=== PATIENT | male | born 1925 | race Caucasian/White ===

== ENCOUNTER 2016-05-21 09:39 | Inpatient (IN) | payer OTHER, MEDICARE ==
[~2016-05-21] VITALS: Ht 177.8 cm; Wt 90.7 kg
[~2016-05-21 09:39] MED LIST: ASPIRIN EC81 M1 PO; DOXYCYCLINE HY100 M2 PO; FIBRO-TABS1 TAB PO; FISH OIL1000 MG PO; FLOMAX0.4 M1 PO; KEFLEX500 M1 PO; LASIX20 M1 PO; LEVOTHYROXINE88 MCG PO; LOPRESSOR100 M1 PO; METOPROLOL TAR100 M1 PO; MULTIPLE VITAM1 EAC2 PO; PRADAXA150 M1 PO; PROAIR HFA8.5 GM INH; TRANSDERM-SCOP1 EACH TOP; VITAMIN D31000 UNI2 PO
--- NOTE | 2016-05-21 09:46 | NUR ---
PT STATES THAT HE IS ON PRADAXA FOR AFIB X 5 YEARS DUE TO AFIB, ALSO WAS STARTED ON DIGOXIN FOR HIS AFIB YESTERDAY. STATES THAT HE HAD A NORMAL BM LAST PM BUT THIS AM STOOL WAS BLACK AND ALSO HAD A MODERATE AMOUNT OF BRIGHT RED BLOOD IN THE TOILET. DENIES ABD PAIN/CP/N/V/D . SOB WITH EXERTION, O2 SAT 94 % ON RA. ALSO COMPLAINS OF FEELING A LITTLE OFF BALANCE
--- NOTE | 2016-05-21 10:09 | NUR ---
PT CHANGED INTO GOWN AND PLACED ON GEAR CUTTER. LABS DRAWN AND SENT. EKG COMPLETED. UNABLE TO ACCESS PERIPHREAL IV SITE X 3 RN. IV NURSE PAGED FOR ASSIST
--- NOTE | 2016-05-21 10:37 | ED GI/GU/ABDOMINAL COMPLAINT ---
History of Present Illness General Chief Complaint: General Adult Stated Complaint: BLOODY STOOL Source: patient, old records Exam Limitations: no limitations Allergies Coded Allergies: strawberry (Mild, HOT STREAK UP HIS BACK PER PT 02/10/16) Penicillins (CONVULSIONS, ANAPHYLAXIS 02/10/16) shrimp (GI UPSET FAR HE REMEMBERS PER PT 02/10/16) Reconcile Medications Albuterol Sulfate (Proair Hfa) 0.09 MG/Actuation SONJA 2 PUFF INH PRN EMPHYSEMA (Reported) Aspirin (Ecotrin) 81 MG TABLET.DR 1 TAB PO DAILY HEART HEALTH (Reported) Cholecalciferol (Vitamin D3) 1,000 IU TAB 1 TAB PO DAILY SUPPLEMENT (Reported ) DABIGATRAN ETEXILATE MESYLATE (Pradaxa) 150 MG CAPSULE 1 CAP PO BID BLOOD THINNER (Reported) Digoxin 125 MCG TABLET 0.5 TAB PO DAILY HEART (Reported) Furosemide (Lasix) 20 MG TABLET 1 TAB PO DAILY DIURETIC (Reported) Levothyroxine Sodium (Levothyroxine) 0.088 MG TAB 1 TAB PO DAILY AC THYROID ( Reported) Metoprolol Tartrate (Lopressor) 100 MG TABLET 1.5 TAB PO BID heart (Reported) Metoprolol Tartrate 100 MG TABLET 1.5 TAB PO TWICE DAILY high blood pressure Multivitamin (Multiple Vitamins) 1 EACH TABLET 1 TAB PO DAILY SUPPLEMENT ( Reported) OMEGA-3/DHA/EPA/FISH OIL ([place]-3 Fish Oil 1,000 MG Sftg) (Unknown Strength) CAPSULE (Unknown Dose) PO DAILY SUPPLEMENT (Reported) Tamsulosin HCl (Flomax) 0.4 MG CAP.ER.24H 1 CAP PO QPM BLADDER (Reported) Triage Note: PT STATES THAT HE IS ON PRADAXA FOR AFIB X 5 YEARS DUE TO AFIB, ALSO WAS STARTED ON DIGOXIN FOR HIS AFIB YESTERDAY. STATES THAT HE HAD A NORMAL BM LAST PM BUT THIS AM STOOL WAS BLACK AND ALSO HAD A MODERATE AMOUNT OF BRIGHT RED BLOOD IN THE TOILET. DENIES ABD PAIN/CP/N/V/D . SOB WITH EXERTION, O2 SAT 94 % ON RA Triage Nurses Notes Reviewed? yes HPI: Patient is an 89 year old male presents complaining of black stool and bright red blood per rectum with bowel movement approximately 2 hours ago. Patient had one episode, reports his stools were normal yesterday. Patient takes Pradaxa. Started on digoxin 3 days ago. Pain is 0/10. Denies abdominal pain, nausea, vomiting, diarrhea, chest pain, dyspnea, lightheadedness, near syncope sensation. (ROBERTO LAW) Vital Signs & Intake/Output Vital Signs & Intake/Output Vital Signs Date Time Temp Pulse Resp B/P Pulse O2 O2 Flow FiO2 Ox Delivery Rate 05/22 0907 98.2 57 20 132/62 94 05/22 0028 60 126/70 05/22 0027 60 126/70 05/21 2353 98.2 58 20 126/70 96 Room Air 05/21 1631 98.5 52 20 130/64 94 Room Air 05/21 1630 94 Room Air 05/21 1323 98.8 51 18 129/59 96 05/21 1200 96 05/21 0943 97.9 56 18 106/50 94 Room Air ED Intake and Output 05/22 0000 05/21 1200 Intake Total 3000 Output Total Balance 3000 Intake, Oral 3000 Number 4 Bowel Movements Patient 200 lb 200 lb Weight Past History Travel History Traveled to [place] past 21 day No Medical History Any Pertinent Medical History? see below for history Neurological: NONE EENT: hearing loss Cardiovascular: AFIB, CARDIAC ARREST Respiratory: COPD Gastrointestinal: diverticulosis Hepatic: NONE Renal: URINARY FREQUENCY Musculoskeletal: NONE Psychiatric: NONE Endocrine: hypothyroidism Blood Disorders: NONE Cancer(s): basal cell carcinoma SHIRT FINISHER/Reproductive: NONE History of MRSA: No History of VRE: No History of CDIFF: No Pneumonia Vaccine: 05/10/10 Surgical History Surgical History: non-contributory Psychosocial History Who do you live with Spouse Services at Home None What is your primary language Macedonian Tobacco Use: Never used ETOH Use: denies use Illicit Drug Use: denies illicit drug use Family History Family History, If Any: MOTHER FH: [place] (myocardial infarction) Hx Contributory? No (ROBERTO LAW) Review of Systems Review of Systems Constitutional: Denies: chills, fever, weakness. EENTM: Reports: no symptoms. Respiratory: Denies: cough, short of breath. Cardiovascular: Denies: chest pain, syncope. GI: Reports: bloody stool. Denies: abdominal pain, nausea, vomiting. Genitourinary: Reports: no symptoms. Musculoskeletal: Denies: back pain, neck pain. Skin: Reports: no symptoms. Neurological/Psychological: Reports: no symptoms. Hematologic/Endocrine: Reports: bleeding. Immunologic/Allergic: Reports: no symptoms. (ROBERTO LAW) Physical Exam Physical Exam General Appearance: well developed/nourished, alert, awake Head: atraumatic, normal appearance Eyes: Bilateral: normal appearance, PERRL, EOMI. Ears, Nose, Throat, Mouth: hearing grossly normal, moist mucous membrane Neck: normal inspection, supple, full range of motion Respiratory: normal breath sounds, chest non-tender, no respiratory distress, lungs clear Cardiovascular: regular rate/rhythm Gastrointestinal: normal bowel sounds, soft, non-tender Rectal: maroon stool with small blood clot Back: normal inspection, normal range of motion Extremities: normal range of motion, trace bilateral lower extremity edema Neurologic/Psych: awake, alert, oriented x 3 Skin: normal color, warm/dry Core Measures ACS in differential dx? No Severe Sepsis Present: No Septic Shock Present: No (ROBERTO LAW) Progress Differential Diagnosis: GI bleed, symptomatic anemia Initial ED EKG: NSR, no ST T wave changes (ROBERTO LAW) Plan of Care: Orders Procedure Date/time Status Nothing by Mouth 05/22 B Active TRC EVALUATION (GEN) 05/22 0910 Active CBC WITHOUT DIFFERENTIAL 05/22 0400 Complete Nothing by Mouth 05/21 L Complete Clear Liquid Diet 05/21 D Complete CBC WITHOUT DIFFERENTIAL 05/21 1900 Complete Vital Signs 05/21 1838 Active Teach/Educate 05/21 1838 Active Nutritional Intake, Monitor 05/21 1838 Active Isolation 05/21 1838 Complete Intake & Output 05/21 1838 Active Patient Care Conference 05/21 1838 Active Activity/Ambulation 05/21 1838 Active Intake & Output 05/21 1244 Active Pathway - chart 05/21 1228 Active Misc Message 05/21 1228 Active ED Holding Orders 05/21 1228 Active Vital Signs 05/21 1228 Active Code Status 05/21 1228 Active Patient Data 05/21 1219 Active Admit to inpatient 05/21 1200 Active URINALYSIS 05/21 1154 Complete Add-on Test (ER Only) 05/21 1048 Active DIGOXIN 05/21 1032 Complete MISTAKE 05/21 1017 Active PARTIAL THROMBOPLASTIN TIME 05/21 1017 Complete PROTHROMBIN TIME 05/21 1017 Complete COMPREHENSIVE METABOLIC PANEL 05/21 1017 Complete CBC WITHOUT DIFFERENTIAL 05/21 1017 Complete EKG 05/21 1017 Active TYPE & SCREEN (NOT X-MATCH) 05/21 1017 Complete VTE Mechanical Prophylaxis 05/21 UNK Active Vital Signs 05/21 UNK Complete Current Medications Sig/Hugo Start time Last Medication Dose Stop Time Status Admin Digoxin 0.0625 MG DAILY 05/22 1000 AC (Lanoxin) Furosemide 20 MG DAILY 05/22 1000 AC (Lasix) Dextrose/Sodium 1,000 ML Q20H 05/22 0915 AC Chloride (D5W-1/2 Normal Saline 1000ML) Ondansetron HCl 4 MG ONCE ONE 05/22 0145 CAN (Zofran) 05/22 0146 Albuterol Sulfate 2 PUF Q4P PRN 05/22 0001 AC (Ventolin) Aspirin Buffered 81 MG DAILY 05/21 1537 AC (Ecotrin) Laboratory Tests 05/22/16 0455: CBC w Diff NO MAN DIFF REQ, RBC 4.04 L, MCV 87.4, MCH 28.8, RDW 16.9 H, MPV 9.7, Gran % 72.1, Lymphocytes % 18.2 L, Monocytes % 5.9, Eosinophils % 2.9, Basophils % 0.9, Absolute Granulocytes 8.1 H, Absolute Lymphocytes 2.1, Absolute Monocytes 0.7 H, Absolute Eosinophils 0.3, Absolute Basophils 0.1, PUBS MCHC 33.0 05/21/16 1920: CBC w Diff NO MAN DIFF REQ, RBC 3.91 L, MCV 87.0, MCH 28.4, RDW 16.6 H, MPV 10.0, Gran % 68.4, Lymphocytes % 20.1 L, Monocytes % 7.8, Eosinophils % 3.4, Basophils % 0.3, Absolute Granulocytes 7.7 H, Absolute Lymphocytes 2.3, Absolute Monocytes 0.9 H, Absolute Eosinophils 0.4, Absolute Basophils 0, PUBS MCHC 32.7 L 05/21/16 1800: CBC w Diff Cancelled, WBC Cancelled, RBC Cancelled, Hgb Cancelled, Hct Cancelled , MCV Cancelled, MCH Cancelled, RDW Cancelled, Plt Count Cancelled, MPV Cancelled, PUBS MCHC Cancelled 05/21/16 1600: CBC w Diff Cancelled, WBC Cancelled, RBC Cancelled, Hgb Cancelled, Hct Cancelled , MCV Cancelled, MCH Cancelled, RDW Cancelled, Plt Count Cancelled, MPV Cancelled, PUBS MCHC Cancelled 05/21/16 1155: Urine Color STRAW, Urine Clarity CLEAR, Urine pH 6.0, Ur Specific [place] 1.015, Urine Protein NEG, Urine Ketones NEG, Urine Nitrite NEG, Urine Bilirubin NEG, Urine Urobilinogen 0.2, Ur Leukocyte Esterase NEG, Ur Microscopic SEDIMENT EXAMINED, Urine RBC RARE, Urine Hemoglobin TRACE-INTACT H, Urine Glucose NEG 05/21/16 1032: Anion Gap 13, Estimated GFR > 60, BUN/Creatinine Ratio 38.0 H, Glucose 91, Calcium 8.9, Total Bilirubin 0.6, AST 44, ALT 35, Alkaline Phosphatase 75, Total Protein 6.4, Albumin 3.7, Globulin 2.7, Albumin/Globulin Ratio 1.4, PT 17.3 H, INR 1.66 H, APTT 87 H, CBC w Diff NO MAN DIFF REQ, RBC 3.89 L, MCV 87.7, MCH 28.5, RDW 17.0 H, MPV 9.6, Gran % 74.1, Lymphocytes % 16.4 L, Monocytes % 6.5, Eosinophils % 2.8, Basophils % 0.2, Absolute Granulocytes 8.6 H, Absolute Lymphocytes 1.9, Absolute Monocytes 0.8 H, Absolute Eosinophils 0.3, Absolute Basophils 0, PUBS MCHC 32.5 L, Digoxin 0.7 L 1130: Results discussed with patient and his . Discussed with and seen by Dr. Dejesus. Discussed with Dr. Tolentino. Discussed with Dr. Roberts for admission. (ROBERTO LAW) Departure Departure Time of Disposition: 115 Disposition: STILL A PATIENT Condition: Stable Clinical Impression Primary Impression: GI bleed Qualifiers: GI bleed type/associated pathology: unspecified gastrointestinal hemorrhage type Qualified Code: K92.2 - Gastrointestinal hemorrhage, unspecified Referrals: NIYAH HENLEY,TROY Patel (PCP/Family) Departure Forms: Customer Survey General Discharge Information Admission Note Spoke With: JAN ROBERTS MD Documentation of Exam: Documentation of any treatments & extenuating circumstances including Concerns Regarding Discharge (functional status, medication knowledge or non-compliance, living conditions, etc.) that warrant an admission rather than observation: Serial complete blood cell counts, GI consultation, hold patient's anticoagulation. With patient being on Pradaxa and having some octavia blood on exam, at high risk. (ISRRAEL RODRIGUEZ,ROBERTO) PA/CABINET WORKER Co-Sign Statement Statement: ED Attending supervision documentation- [x] I saw and evaluated the patient. I have also reviewed all the pertinent lab results and diagnostic results. I agree with the findings and the plan of care as documented in the PA's/CABINET WORKER's documentation. [] I have reviewed the ED Record and agree with the PA's/CABINET WORKER's documentation. [] Additions or exceptions (if any) to the PAs/CABINET WORKER's note and plan are summarized below: [] (NOLAN HENLEY,ALLAN Holly)
[2016-05-21 10:50] LABS: ABSOLUTE BASOPHIL COUNT 0 /CUMM (0.0-0.2); ABSOLUTE EOSINOPHIL COUNT 0.3 /CUMM (0.0-0.7); ABSOLUTE GRANULOCYTE CT 8.6 /CUMM (1.4-6.5); ABSOLUTE LYMPH COUNT 1.9 /CUMM (1.2-3.4); ABSOLUTE MONOCYTE COUNT 0.8 /CUMM (0.10-0.60); BASOPHIL % 0.2 % (0.0-2.0); EOSINOPHIL % 2.8 % (0-5); GRANULOCYTE % 74.1 % (42.2-75.2); HEMATOCRIT 34.1 % (42-52); MEAN CORPUSCULAR HGB 28.5 PG (27.0-31.0); MEAN CORPUSCULAR HGB CONC 32.5 G/DL (33.0-37.0); MEAN CORPUSCULAR VOLUME 87.7 FL (80.0-94.0); MEAN PLATELET VOLUME 9.6 FL (7.4-10.4); PLATELET COUNT 268 /CUMM (130-400); RED BLOOD CELL CT 3.89 /CUMM (4.70-6.10); WHITE BLOOD CELL COUNT 11.7 /CUMM (4.8-10.8)
[2016-05-21 10:53] LABS: PT 17.3 SEC (9.4-12.5); PTT 87 SEC (25-37)
[2016-05-21] MEDS ORDERED: DIGOXIN125 MCG PO (11:30)
--- NOTE | 2016-05-21 11:43 | NUR ---
PT ASSISTED WITH URINAL
--- NOTE | 2016-05-21 12:14 | NUR ---
PT REQUESTING TO EAT PA STATES HE MAY HAVE A CLEAR LIQUID DIET ORDERED FROM THE [facility]
--- NOTE | 2016-05-21 12:26 | History & Physical ---
See Addendum General Information and HPI MD Statement: I have seen and personally examined BEKA GRIFFITHS JR and documented this H&P. The patient is a 89 year old M who presented with a patient stated chief complaint of [DARK STOOLS, BLEEDING PER RECTUM]. Source of Information: patient Exam Limitations: no limitations History of Present Illness: Patient is 89 year old male with PMH of atrial fibrillation on pradexa, hemorrids, emphysema, HTN, s/p cardiac arrest with ACID in 2009, hypothyroidism, hyperlipidemia and BPH came to [facility] after an episode of dark stools per rectum and fresh blood seen after that. Patient states that he was in his usual state of health yesterday, had a regular BM around 6 pm, and had one episode of dark stools followed by bright red blood per rectum this morning at 8 am. Patient had [place] [address] Hernandez, which was significant for a hyperplastic polyp. He was supposed to have a follow up colonoscopy 5 years later but he forgot about that. Patient denies any bloating, constipation, nausea, vomting, any hx of GI bleed etc. He reports that he has external hemorriods, does not remember the stage ( possibly statge 3 or 4) but he has to push them back in sometimes after a bowel movement. ROS is negative except for dependent edema in b/l lower extremety. Patient has paroxsymal atrial fibrillation and was started on digoxin for that 3 days ago by his lumber scaler. He thinks that his rectal bleeding is probably due to the new medication. His father and sister had questionable abdominal cancers, he does not remember which one exactly. Allergies/Medications Allergies: Coded Allergies: strawberry (Mild, HOT STREAK UP HIS BACK PER PT 02/10/16) Penicillins (CONVULSIONS, ANAPHYLAXIS 02/10/16) shrimp (GI UPSET FAR HE REMEMBERS PER PT 02/10/16) Home Med list Albuterol Sulfate (Proair Hfa) 0.09 MG/Actuation SONJA 2 PUFF INH PRN EMPHYSEMA (Reported) Aspirin (Ecotrin) 81 MG TABLET.DR 1 TAB PO DAILY HEART HEALTH (Reported) Cholecalciferol (Vitamin D3) 1,000 IU TAB 1 TAB PO DAILY SUPPLEMENT (Reported ) DABIGATRAN ETEXILATE MESYLATE (Pradaxa) 150 MG CAPSULE 1 CAP PO BID BLOOD THINNER (Reported) Digoxin 125 MCG TABLET 0.5 TAB PO DAILY HEART (Reported) Furosemide (Lasix) 20 MG TABLET 1 TAB PO DAILY DIURETIC (Reported) Levothyroxine Sodium (Levothyroxine) 0.088 MG TAB 1 TAB PO DAILY AC THYROID ( Reported) Metoprolol Tartrate (Lopressor) 100 MG TABLET 1.5 TAB PO BID heart (Reported) Metoprolol Tartrate 100 MG TABLET 1.5 TAB PO TWICE DAILY high blood pressure Multivitamin (Multiple Vitamins) 1 EACH TABLET 1 TAB PO DAILY SUPPLEMENT ( Reported) OMEGA-3/DHA/EPA/FISH OIL ([place]-3 Fish Oil 1,000 MG Sftg) (Unknown Strength) CAPSULE (Unknown Dose) PO DAILY SUPPLEMENT (Reported) Tamsulosin HCl (Flomax) 0.4 MG CAP.ER.24H 1 CAP PO QPM BLADDER (Reported) Past History Travel History Traveled to [place] past 21 day No Medical History Neurological: NONE EENT: hearing loss Cardiovascular: AFIB, CARDIAC ARREST Respiratory: COPD Gastrointestinal: diverticulosis Hepatic: NONE Renal: URINARY FREQUENCY Musculoskeletal: NONE Psychiatric: NONE Endocrine: hypothyroidism Blood Disorders: NONE Cancer(s): basal cell carcinoma DIRECTOR OF PUBLIC WORKS/Reproductive: NONE History of MRSA: No History of VRE: No History of CDIFF: No Pneumonia Vaccine: 05/10/10 Surgical History Surgical History: non-contributory Past Family/Social History Family History Relations & Conditions if any MOTHER FH: [place] (myocardial infarction) FATHER FH: colon cancer SISTER FH: colon cancer Psychosocial History Services at Home: None ETOH Use: denies use Illicit Drug Use: denies illicit drug use Review of Systems Review of Systems Constitutional: Reports: see HPI. Exam & Diagnostic Data Last 24 Hrs of Vital Signs/I&O Vital Signs Date Time Temp Pulse Resp B/P Pulse O2 O2 Flow FiO2 Ox Delivery Rate 05/21 1323 98.8 51 18 129/59 96 05/21 1200 96 05/21 0943 97.9 56 18 106/50 94 Room Air Intake & Output 05/21 1600 05/21 0800 05/21 0000 Intake Total 0 Output Total Balance 0 Intake, Oral 0 Patient 90.718 kg Weight Physical Exam General Appearance Alert, Oriented X3, Cooperative Skin No Rashes, No Breakdown Cardiovascular Regular Rate, Normal S1, Normal S2 Lungs Clear to Auscultation, Normal Air Movement Abdomen Normal Bowel Sounds, Soft, slight tenderness in left lower quadrant Extremities b/l pitting edema Last 24 Hrs of Labs/Sincere: Laboratory Tests 05/21/16 1155: Urine Color STRAW, Urine Clarity CLEAR, Urine pH 6.0, Ur Specific [place] 1.015, Urine Protein NEG, Urine Ketones NEG, Urine Nitrite NEG, Urine Bilirubin NEG, Urine Urobilinogen 0.2, Ur Leukocyte Esterase NEG, Ur Microscopic SEDIMENT EXAMINED, Urine RBC RARE, Urine Hemoglobin TRACE-INTACT H, Urine Glucose NEG 05/21/16 1032: Anion Gap 13, Estimated GFR > 60, BUN/Creatinine Ratio 38.0 H, Glucose 91, Calcium 8.9, Total Bilirubin 0.6, AST 44, ALT 35, Alkaline Phosphatase 75, Total Protein 6.4, Albumin 3.7, Globulin 2.7, Albumin/Globulin Ratio 1.4, PT 17.3 H, INR 1.66 H, APTT 87 H, CBC w Diff NO MAN DIFF REQ, RBC 3.89 L, MCV 87.7, MCH 28.5, RDW 17.0 H, MPV 9.6, Gran % 74.1, Lymphocytes % 16.4 L, Monocytes % 6.5, Eosinophils % 2.8, Basophils % 0.2, Absolute Granulocytes 8.6 H, Absolute Lymphocytes 1.9, Absolute Monocytes 0.8 H, Absolute Eosinophils 0.3, Absolute Basophils 0, PUBS MCHC 32.5 L, Digoxin 0.7 L Assessment/Plan Assessment: Patient is 89 year old male with PMH of atrial fibrillation on pradexa, hemorrids, emphysema, HTN, s/p cardiac arrest with ACID in 2009, hypothyroidism, hyperlipidemia and BPH came to [facility] after an episode of dark stools per rectum and fresh blood seen after that. Patient states that he was in his usual state of health yesterday, had a regular BM around 6 pm, and had one episode of dark stools followed by bright red blood per rectum this morning at 8 am. Patient had colon[place] [address] Hernandez, which was significant for a hyperplastic polyp. He was supposed to have a follow up colonoscopy 5 years later but he forgot about that. Patient denies any bloating, constipation, nausea, vomting, any hx of GI bleed etc. Labs and Vitals as above No imaging done in ER Assessment and plan: Patient looked very dry and hasnot eaten since morning, now on clear liq diet. Will start one bag of NS @ 75 cc/hr Will hold pradexa and aspirin for now WIll continue digoxin and the rest of his home medications. Anusol supp for hemorrids GI consult service on board, will follow their ecommendations DVT ppx ALPS only Full code He want his to be contacted in emergency As Ranked By This Provider Problem List: 1. GI bleed Qualifiers GI bleed type/associated pathology: unspecified gastrointestinal hemorrhage type Qualified Code: K92.2 - Gastrointestinal hemorrhage, unspecified 2. Hypothyroidism Core Measures/Miscellaneous Acute Coronary Syndrome ACS Diagnosis: No Cerebrovascular Accident CVA/TIA Diagnosis: No Congestive Heart Failure CHF Diagnosis: No Venous Thromboembolism VTE Risk Factors: Age > 40 VTE Prophylaxis Ordered Inpt: Mechanical (ALPS/TEDS) No Mech VTE prophylaxis d/t: No contraindications No VTE Pharm Prophylaxis d/t: Active bleeding VTE Diagnosis: No VTE Type: NONE VTE Confirmed by (Test): NONE Severe Sepsis Severe Sepsis Present: No Septic Shock Septic Shock Present: No Miscellaneous Documentation Attending Case Discussed With: FACUNDO HENLEY,FARHEEN Callejas Primary Care Physician: TROY LINDER MD Patient sees these Specialists dr. babin Level of Patient Care: General Medicine
--- NOTE | 2016-05-21 12:42 | NUR ---
PT ADMIT TO BED /
--- NOTE | 2016-05-21 12:45 | NUR ---
PT RESTING COMFORTABLY NO COMPLAINTS OFFERED
--- NOTE | 2016-05-21 13:20 | NUR ---
NS INFUSING AT 75ML/HR.
--- NOTE | 2016-05-21 14:07 | NUR ---
REPORT GIVEN TO MAYI COSTATRACK MAINTAINER NOTIFIED
--- NOTE | 2016-05-21 14:15 | NUR ---
PT BED CHANGED TO 210 2 TRANSPORT MADE AWARE
--- NOTE | 2016-05-21 14:28 | Cons- Gastroenterology ---
General Information and HPI Consulting Request Date of Consult: 05/21/16 Requested By: FACUNDO HENLEY,FARHEEN Callejas Reason for Consult: Melena, BRBPR. Source of Information: patient Exam Limitations: no limitations History of Present Illness: Mr. Fried is a 89-year-old male with a history of atrial fibrillation on Pradaxa who presented to this morning with complaints of melena and brbpr. He notes that this morning when he went to the bathroom he noticed black stool with some fresh blood mixed in with the stool and on the toilet paper. He has never had stool that appeared like this before and the bowel movement was not associated with any abdominal pain, nausea, vomiting or hematemesis. He also noted that the bowel movement was formed and not tarry or sticky. He has been without any abdominal pain with eating. He does note that over the past several weeks he has had worsening constipation which has resulted in some straining. He tried increasing the amount of fiber in his diet for his constipation without much relief. His last BM before this morning was last night and this was normal in appearance. In the ER he was hemodynamically stable and was noted to have maroon colored stool on rectal exam without obvious melena, and he has not had any further bowel movements since arriving to the hospital and he has been hemodynamically stable. Allergies/Medications Allergies: Coded Allergies: strawberry (Mild, HOT STREAK UP HIS BACK PER PT 02/10/16) Penicillins (CONVULSIONS, ANAPHYLAXIS 02/10/16) shrimp (GI UPSET FAR HE REMEMBERS PER PT 02/10/16) Home Med List: Albuterol Sulfate (Proair Hfa) 0.09 MG/Actuation SONJA 2 PUFF INH PRN EMPHYSEMA (Reported) Aspirin (Ecotrin) 81 MG TABLET.DR 1 TAB PO DAILY HEART HEALTH (Reported) Cholecalciferol (Vitamin D3) 1,000 IU TAB 1 TAB PO DAILY SUPPLEMENT (Reported ) DABIGATRAN ETEXILATE MESYLATE (Pradaxa) 150 MG CAPSULE 1 CAP PO BID BLOOD THINNER (Reported) Digoxin 125 MCG TABLET 0.5 TAB PO DAILY HEART (Reported) Furosemide (Lasix) 20 MG TABLET 1 TAB PO DAILY DIURETIC (Reported) Levothyroxine Sodium (Levothyroxine) 0.088 MG TAB 1 TAB PO DAILY AC THYROID ( Reported) Metoprolol Tartrate (Lopressor) 100 MG TABLET 1.5 TAB PO BID heart (Reported) Metoprolol Tartrate 100 MG TABLET 1.5 TAB PO TWICE DAILY high blood pressure Multivitamin (Multiple Vitamins) 1 EACH TABLET 1 TAB PO DAILY SUPPLEMENT ( Reported) OMEGA-3/DHA/EPA/FISH OIL ([place]-3 Fish Oil 1,000 MG Sftg) (Unknown Strength) CAPSULE (Unknown Dose) PO DAILY SUPPLEMENT (Reported) Omeprazole 20 MG CAPSULE.DR 20 MG PO DAILY AC GASTRITIS Tamsulosin HCl (Flomax) 0.4 MG CAP.ER.24H 1 CAP PO QPM BLADDER (Reported) Current Medications: Current Medications Sig/Hugo Start time Last Medication Dose Route Stop Time Status Admin Albuterol Sulfate 2 PUF Q4 05/21 1800 UNVr INH Digoxin 0.0625 MG DAILY 05/22 1000 UNVr PO Furosemide 20 MG DAILY 05/22 1000 AC PO Levothyroxine Sodium 0.088 MG DAILY AC 05/22 0700 AC PO Metoprolol Succinate 150 MG BID 05/21 2200 UNVr PO Pramoxine/Hydrocort/ 25 MG BID 05/21 1325 AC 05/21 Chloroxylenol [place] 1414 Sodium Chloride 1,000 ML ONCE ONE 05/21 1300 AC 05/21 IV 05/22 0219 1319 Tamsulosin HCl 0.4 MG QPM 05/21 2200 AC PO Past History Travel History Traveled to [place] past 21 day No Medical History Neurological: NONE EENT: hearing loss Cardiovascular: AFIB, CARDIAC ARREST Respiratory: COPD Gastrointestinal: diverticulosis, last colonoscopy 2006 Hepatic: NONE Renal: URINARY FREQUENCY Musculoskeletal: NONE Psychiatric: NONE Endocrine: hypothyroidism Blood Disorders: NONE Cancer(s): basal cell carcinoma 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 EENTM: Reports: visual changes, hearing changes. Cardiovascular: Denies: no symptoms. Respiratory: Reports: short of breath. GI: Reports: see HPI. Genitourinary: Denies: no symptoms. Musculoskeletal: Denies: no symptoms. Skin: Denies: no symptoms. Neurological/Psychological: Denies: no symptoms. Hematologic/Endocrine: Reports: see HPI, bleeding. Immunologic/Allergic: Denies: no symptoms. All Other Systems: Reviewed and Negative Exam & Diagnostic Data Vital Signs and I&O Vital Signs Date Time Temp Pulse Resp B/P Pulse O2 O2 Flow FiO2 Ox Delivery Rate 05/21 1323 98.8 51 18 129/59 96 05/21 1200 96 05/21 0943 97.9 56 18 106/50 94 Room Air Intake & Output 05/21 1600 05/21 0400 05/20 04005/19 040 Intake Total 0 Output Total Balance 0 Intake, Oral 0 Patient 200 lb Weight Physical Exam General Appearance: well developed/nourished, no apparent distress, comfortable, appears younger than his stated age Head: atraumatic, normal appearance Eyes: Bilateral: normal appearance. Ears, Nose, Throat: normal pharynx, normal ENT inspection, dry mm Neck: normal inspection, supple, full range of motion, JVD Respiratory: chest non-tender, no respiratory distress, rhonchi Cardiovascular: regular rate/rhythm Gastrointestinal: normal bowel sounds, soft, non-tender, no organomegaly, hernia Rectal: deferred, maroon colored stool per ED Back: normal inspection, normal range of motion Extremities: pedal edema Neurologic/Psych: no motor/sensory deficits, awake, alert, oriented x 3 Skin: intact, normal color, warm/dry Results Pertinent Lab Results: Laboratory Tests 05/21 05/21 1155 1032 Chemistry Sodium (137 - 145 mmol/L) 143 Potassium (3.5 - 5.1 mmol/L) 4.4 Chloride (98 - 107 mmol/L) 102 Carbon Dioxide (22 - 30 mmol/L) 28 Anion Gap (5 - 16) 13 BUN (9 - 20 mg/dL) 38 H Creatinine (0.7 - 1.2 mg/dL) 1.0 Estimated GFR (>60 ml/min) > 60 BUN/Creatinine Ratio (7 - 25 %) 38.0 H Glucose (65 - 99 mg/dL) 91 Calcium (8.4 - 10.2 mg/dL) 8.9 Total Bilirubin (0.2 - 1.3 mg/dL) 0.6 AST (17 - 59 U/L) 44 ALT (21 - 72 U/L) 35 Alkaline Phosphatase (< 127 U/L) 75 Total Protein (6.3 - 8.2 g/dL) 6.4 Albumin (3.5 - 5.0 g/dL) 3.7 Globulin (1.9 - 4.2 gm/dL) 2.7 Albumin/Globulin Ratio (1.1 - 2.2 %) 1.4 Coagulation PT (9.4 - 12.5 SEC) 17.3 H INR (0.90 - 1.17) 1.66 H APTT (25 - 37 SEC) 87 H Hematology CBC w Diff NO MAN DIFF REQ WBC (4.8 - 10.8 /CUMM) 11.7 H RBC (4.70 - 6.10 /CUMM) 3.89 L Hgb (14.0 - 18.0 G/DL) 11.1 L Hct (42 - 52 %) 34.1 L MCV (80.0 - 94.0 FL) 87.7 MCH (27.0 - 31.0 PG) 28.5 RDW (11.5 - 14.5 %) 17.0 H Plt Count (130 - 400 /CUMM) 268 MPV (7.4 - 10.4 FL) 9.6 Gran % (42.2 - 75.2 %) 74.1 Lymphocytes % (20.5 - 51.1 %) 16.4 L Monocytes % (1.7 - 9.3 %) 6.5 Eosinophils % (0 - 5 %) 2.8 Basophils % (0.0 - 2.0 %) 0.2 Absolute Granulocytes (1.4 - 6.5 /CUMM) 8.6 H Absolute Lymphocytes (1.2 - 3.4 /CUMM) 1.9 Absolute Monocytes (0.10 - 0.60 /CUMM) 0.8 H Absolute Eosinophils (0.0 - 0.7 /CUMM) 0.3 Absolute Basophils (0.0 - 0.2 /CUMM) 0 PUBS MCHC (33.0 - 37.0 G/DL) 32.5 L Toxicology Digoxin (0.8 - 2.0 ng/mL) 0.7 L Urines Urine Color (YEL,AMB,STR) STRAW Urine Clarity (CLEAR) CLEAR Urine pH (5.0 - 8.0) 6.0 Ur Specific [place] (1.001 - 1.035) 1.015 Urine Protein (NEG,<30 MG/DL) NEG Urine Ketones (NEG) NEG Urine Nitrite (NEG) NEG Urine Bilirubin (NEG) NEG Urine Urobilinogen (0.1 - 1.0 EU/dl) 0.2 Ur Leukocyte Esterase (NEG) NEG Ur Microscopic SEDIMENT EXAMINED Urine RBC (0 - 5 /HPF) RARE Urine Hemoglobin (NEG) TRACE-INTACT H Urine Glucose (N MG/DL) NEG Assessment/Plan Assessment/Recommendations: Assessment: Mr. Fried is an 89-year-old male with a fibrillation on anticoagulation who presents with maroon-colored stool on rectal exam and reports of melena that was not appreciated on rectal exam. He is currently hemodynamically stable and his blood count is also stable from this past February and he is without significant orthostatic changes so I am not certain that he has actually had a GI bleed and it is possible that the blood he saw this morning secondary to hemorrhoids considering the straining he has been doing and the black stool may have simply been diet related. That being said, his BUN to creatinine ratio is elevated suggesting he may have had an upper GI bleed and his hemoglobin may fall on subsequent checks. He also takes aspirin without any GI prophylaxis which may also predispose him to peptic ulcer disease. Considering his need for long-term anticoagulation for his atrial fibrillation it would not be unreasonable to pursue an endoscopic workup, but I am not certain that a full colonoscopy needs to be performed if he clinically stops bleeding and remains stable. Recommendations: 1. Admit to the medical service for observation. 2. Hold Pradaxa for now. 3. Follow CBCs every 8 hours and transfuse as needed to keep hemoglobin greater than 8 or as per cardiology recommendations. 4. Notify GI for signs of overt active bleeding. 5. Keep nothing by mouth for a diagnostic/therapy to upper endoscopy to be performed later today. If the endoscopy is negative for any obvious source of bleeding will then tentatively plan to pursue a colonoscopy tomorrow. I will continue to follow this patient and make further condition based on his clinical course and results of the upper endoscopy. Problem List: 1. GI bleed 2. Atrial flutter Copies To: NIYAH HENLEY,TROY Avina. Consult Acknowledgment - Thank you for your consult request.
--- NOTE | 2016-05-21 14:54 | NUR ---
TRANSPORT HERE TO TAKE PT TO GI SUITE
--- NOTE | 2016-05-21 15:10 | Proc Note Endoscopy ---
Endoscopy Procedure Medical History: unchanged (see [facility] consult) Mental Status: alert/oriented Heart/Lung Eval Prior to Sedation: within normal limits Candidate for Sedation? Yes Procedure Date: 05/21/16 Procedure Type: EGD Bicycle Assembler: Dada Tolentino MD ASA Classification: III Indications: Melena Instrument: diagnostic gastroscope Meds Received: MAC Patient's Tolerance: good Complications: none Extent Reached: second part of duodenum Procedure: After getting written informed consent the patient was placed in the left lateral decubitus position with pulse oximetry, cardiac monitoring, and supplemental oxygen given. A bite block was inserted and IV sedation was given until the desired effect was achieved. A high definition upper Olympus endoscope was then inserted into the mouth and advanced to the second portion of the duodenum with little difficulty. Retroflexed views and photodocumentation was obtained. Findings: Esophagus: The upper esophageal mucosa was grossly normal in appearance. There were a few tongues of salmon-colored mucosa which started at 32 cm from the incisors and extended to 35 cm from the incisors. There were no focal lesions appreciated in the salmon-colored mucosa under white light or narrow band imaging. The hiatal narrowing was at 39 cm from the incisors accounting for a 3 -4 semi-a sliding hiatal hernia. Stomach: The antral mucosa was mildly erythematous with a few scattered erosions , but there were no ulcers or masses appreciated. Distention and peristalsis of the stomach appeared normal. Retroflexed views revealed a hiatal hernia without Erik erosions. Duodenum: The duodenal bulb, sweep, and folds were grossly normal in appearance. There was bile appreciated throughout the second portion of the duodenum. Impression: 1. 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 2. 3-4 cm sliding hiatal hernia. 3. Erosive gastritis. 4. No active bleeding or source of bleeding appreciated. Recommendations: 1. Transfer back to medical floor and put on a clear liquid diet. 2. Continue to hold Pradaxa, but is okay to restart his aspirin if medically indicated. 3. Start an oral PPI for GI prophylaxis if he is to stay on aspirin. 4. He should follow an antireflux regimen. 5. He should be prepped tonight with 1 gallon of Colyte and keep nothing by mouth after the bowel prep in anticipation for a diagnostic colonoscopy to be performed in the a.m. CC: NIYAH HENLEY,TROY Patel; ROSALVA HENLEY,YENNIFER
[2016-05-21 16:31] VITALS: BP 130/64
--- NOTE | 2016-05-21 17:24 | Admission Certification ---
Admission Certification Certification Statement - As attending physician, I certify that at the time of - admission, based on clinical presentation, severity of - symptoms, need for further diagnostic testing and - therapeutic interventions, and risk of adverse outcomes - without in-hospital treatment, in my clinical assessment, - this patient requires an acute hospital stay for a minimum - of two nights or longer. I have also considered psychsocial - factors such as support system, advanced age, financial - issues, cognitive issues, and failed out-patient treatments, - past re-admission history, safety of patient, and lack of - compliance as applicable. Specific rationale supporting this admission is: GI bleed. will need monitorign of h/h and GI eval.
[2016-05-21 20:18] LABS: ABSOLUTE BASOPHIL COUNT 0 /CUMM (0.0-0.2); ABSOLUTE EOSINOPHIL COUNT 0.4 /CUMM (0.0-0.7); ABSOLUTE GRANULOCYTE CT 7.7 /CUMM (1.4-6.5); ABSOLUTE LYMPH COUNT 2.3 /CUMM (1.2-3.4); ABSOLUTE MONOCYTE COUNT 0.9 /CUMM (0.10-0.60); BASOPHIL % 0.3 % (0.0-2.0); EOSINOPHIL % 3.4 % (0-5); GRANULOCYTE % 68.4 % (42.2-75.2); MEAN CORPUSCULAR HGB 28.4 PG (27.0-31.0); MEAN CORPUSCULAR HGB CONC 32.7 G/DL (33.0-37.0); PLATELET COUNT 236 /CUMM (130-400); RBC DISTRIBUTION WIDTH 16.6 % (11.5-14.5); RED BLOOD CELL CT 3.91 /CUMM (4.70-6.10); WHITE BLOOD CELL COUNT 11.3 /CUMM (4.8-10.8)
[2016-05-21 23:53] VITALS: BP 126/70
--- NOTE | 2016-05-22 03:13 | NUR ---
LATE ENTRY FOR 05/21/[address] HOLMAN THAT PT UNABLE TO COMPLETE THE GOLYTELY DRINK. PT DID DRINK ABOUT 3000ML. [address] HOLMAN PT STILL HAVING DK MAROON COLORED LIQUID STOOL. PT WITH SOME NAUSEA. 0123 PT REFUSED ZOFRAN-DOES NOT WANT ANY MEDICATION AT THIS TIME. WILL MONITOR. SEE EMAR.
[2016-05-22 05:27] LABS: ABSOLUTE BASOPHIL COUNT 0.1 /CUMM (0.0-0.2); ABSOLUTE EOSINOPHIL COUNT 0.3 /CUMM (0.0-0.7); ABSOLUTE GRANULOCYTE CT 8.1 /CUMM (1.4-6.5); ABSOLUTE LYMPH COUNT 2.1 /CUMM (1.2-3.4); ABSOLUTE MONOCYTE COUNT 0.7 /CUMM (0.10-0.60); BASOPHIL % 0.9 % (0.0-2.0); EOSINOPHIL % 2.9 % (0-5); GRANULOCYTE % 72.1 % (42.2-75.2); HEMATOCRIT 35.3 % (42-52); MEAN CORPUSCULAR HGB 28.8 PG (27.0-31.0); MEAN CORPUSCULAR VOLUME 87.4 FL (80.0-94.0); MEAN PLATELET VOLUME 9.7 FL (7.4-10.4); PLATELET COUNT 254 /CUMM (130-400); RBC DISTRIBUTION WIDTH 16.9 % (11.5-14.5); RED BLOOD CELL CT 4.04 /CUMM (4.70-6.10); WHITE BLOOD CELL COUNT 11.3 /CUMM (4.8-10.8)
--- NOTE | 2016-05-22 06:27 | PN- Housestaff ---
ANTIONE HENLEY,ALBERT 05/22/16 0626: Subjective Follow-up For: Rectal bleeding Hemodynamic stability Subjective: Patient seen and examined at bedside. He is resting comfortably in bed with no complaints. Hard of hearing due to lack of batteries in his hearing aids. Patient was able to tolerate only 3L of the Golytely yesterday per nursing report. He denies any abdominal pain, n/v this morning. His stools were reportedly claudia dark colored last night. Review of Systems Constitutional: Reports: see HPI. Objective Last 24 Hrs of Vital Signs/I&O Vital Signs Date Time Temp Pulse Resp B/P Pulse O2 O2 Flow FiO2 Ox Delivery Rate 05/22 0907 98.2 57 20 132/62 94 05/22 0028 60 126/70 05/22 0027 60 126/70 05/21 2353 98.2 58 20 126/70 96 Room Air 05/21 1631 98.5 52 20 130/64 94 Room Air 05/21 1630 94 Room Air 05/21 1323 98.8 51 18 129/59 96 05/21 1200 96 Intake & Output 05/22 1600 05/22 0800 05/22 0000 Intake Total 450 3000 Output Total 1 Balance 449 3000 Intake, IV 450 Intake, Oral 3000 Number 2 4 Bowel Movements Output, Urine 1 Patient 90.718 kg Weight Physical Exam General Appearance: Alert, Oriented X3, Cooperative, No Acute Distress Other Physical Findings: Skin No Rashes, No Breakdown Cardiovascular Regular Rate, Normal S1, Normal S2 Lungs Clear to Auscultation, Normal Air Movement Abdomen Normal Bowel Sounds, Soft, slight tenderness in left lower quadrant Extremities b/l pitting edema Current Medications: Current Medications Sig/Hugo Start time Last Medication Dose Route Stop Time Status Admin Albuterol Sulfate 2 PUF Q4P PRN 05/22 0001 AC INH Albuterol Sulfate 2 PUF Q4 05/21 1800 DC INH Aspirin Buffered 81 MG DAILY 05/21 1537 AC 05/22 PO 1005 Bisacodyl 5 MG ONE ONE 05/22 0200 DC 05/22 PO 05/22 0201 0234 Dextrose/Sodium 1,000 ML Q20H 05/22 0915 AC 05/22 Chloride IV 1006 Digoxin 0.0625 MG DAILY 05/22 1000 AC 05/22 PO 1006 Furosemide 20 MG DAILY 05/22 1000 AC 05/22 PO 1006 Levothyroxine Sodium 0.088 MG DAILY AC 05/22 0700 AC 05/22 PO 0647 Metoprolol Tartrate 150 MG BID 05/21 2200 AC 05/22 PO 1006 Omeprazole 40 MG DAILY AC 05/21 1535 AC 05/22 PO 0647 Ondansetron HCl 4 MG ONCE ONE 05/22 0145 CAN PO 05/22 0146 Ondansetron HCl 4 MG ONCE ONE 05/22 0100 DC IV 05/22 0101 Polyethylene Glycol 1 GAL ONCE ONE 05/21 1999 DC 05/21 PO 05/21 2000 2040 Pramoxine/Hydrocort/ 25 MG BID 05/21 1325 AC 05/21 Chloroxylenol [place] 1414 Sodium Chloride 1,000 ML Q13H 05/22 0100 DC 05/22 IV 0123 Sodium Chloride 1,000 ML ONCE ONE 05/21 1300 DC 05/21 IV 05/22 0219 1319 Sodium Phosphate 2 UNIT ONCE ONE 05/22 1115 DC OR 05/22 1116 Sodium Phosphate 2 UNIT ONCE ONE 05/22 1115 DC 05/22 OR 05/22 1116 1121 Tamsulosin HCl 0.4 MG QPM 05/21 220 AC 05/22 PO 0027 Last 24 Hrs of Lab/Sincere Results Last 24 Hrs of Labs/Mics: Laboratory Tests 05/22/16 0455: CBC w Diff NO MAN DIFF REQ, RBC 4.04 L, MCV 87.4, MCH 28.8, RDW 16.9 H, MPV 9.7, Gran % 72.1, Lymphocytes % 18.2 L, Monocytes % 5.9, Eosinophils % 2.9, Basophils % 0.9, Absolute Granulocytes 8.1 H, Absolute Lymphocytes 2.1, Absolute Monocytes 0.7 H, Absolute Eosinophils 0.3, Absolute Basophils 0.1, PUBS MCHC 33.0 05/21/16 1920: CBC w Diff NO MAN DIFF REQ, RBC 3.91 L, MCV 87.0, MCH 28.4, RDW 16.6 H, MPV 10.0, Gran % 68.4, Lymphocytes % 20.1 L, Monocytes % 7.8, Eosinophils % 3.4, Basophils % 0.3, Absolute Granulocytes 7.7 H, Absolute Lymphocytes 2.3, Absolute Monocytes 0.9 H, Absolute Eosinophils 0.4, Absolute Basophils 0, PUBS MCHC 32.7 L 05/21/16 1800: CBC w Diff Cancelled, WBC Cancelled, RBC Cancelled, Hgb Cancelled, Hct Cancelled , MCV Cancelled, MCH Cancelled, RDW Cancelled, Plt Count Cancelled, MPV Cancelled, PUBS MCHC Cancelled 05/21/16 1600: CBC w Diff Cancelled, WBC Cancelled, RBC Cancelled, Hgb Cancelled, Hct Cancelled , MCV Cancelled, MCH Cancelled, RDW Cancelled, Plt Count Cancelled, MPV Cancelled, PUBS MCHC Cancelled 05/21/16 1155: Urine Color STRAW, Urine Clarity CLEAR, Urine pH 6.0, Ur Specific [place] 1.015, Urine Protein NEG, Urine Ketones NEG, Urine Nitrite NEG, Urine Bilirubin NEG, Urine Urobilinogen 0.2, Ur Leukocyte Esterase NEG, Ur Microscopic SEDIMENT EXAMINED, Urine RBC RARE, Urine Hemoglobin TRACE-INTACT H, Urine Glucose NEG Assessment/Plan Assessment: Patient is 89 year old male with PMH of atrial fibrillation on pradexa, hemorrids, emphysema, HTN, s/p cardiac arrest with ACID in 2009, hypothyroidism, hyperlipidemia and BPH came to after an episode of dark stools per rectum and fresh blood most likely 2/2 hemorrhoid with erosive gastritis. 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 The maroon brown color of his stool possibly due to gastritis found on EGD. No active bleeding currently. His hemoglobin on admission was slightly low at 11.3 but has been stable since. 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 3-4 cm sliding hiatal hernia. Erosive gastritis. No active bleeding or source of bleeding appreciated. * Gentle IV hydration * Holding Pradexa * Cont aspirin as per GI rec * Pending colonoscopy today * Keep NPO * Prilosec 40mg PO daily per GI * Appreciate GI recs # Afib * Cont digoxin at home dosage * Hold Pradexa * Cont home med metoprolol 150mg PO BID # HTN * Cont home meds metoprolol and Lasix - NPO for colonoscopy - Mild pain pathway - DVT ppx ALPS only - Full code Problem List: 1. GI bleed Pain Ratin Pain Location: 0 Pain Goal: Remain pain free Pain Plan: Mild pathway Tomorrow's Labs & Rationales: CBC to monitor signs of bleeding FARHEEN LOREDO 05/22/16 1708: Attending MD Review Statement Attending Statement Attending MD Statement: examined this patient, discuss w/resident/PA/HEMODIALYSIS TECHNICIAN, agreed w/resident/PA/HEMODIALYSIS TECHNICIAN, reviewed EMR data (avail), discussed with nursing, discussed with case mgmt Attending Assessment/Plan: Patient seen and examined at bedside. EGD results reviewed and discussed with the patient. EGD shows erosive gastritis and some Anderson's esophagus. Colonoscopy shows some hemorrhoids. Discussed with patient the importance of cutting down on caffeine beverages intake. GI is okay with starting back Pradaxa and aspirin on the patient. Patient will be discharged to home today. Discussed with patient the care plan. Please refer to the discharge summary for more details
--- NOTE | 2016-05-22 08:17 | NUR ---
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
[2016-05-22 09:07] VITALS: BP 132/62
--- NOTE | 2016-05-22 11:00 | NUR ---
NURSING NOTE: GI CALLED ABOUT PATIENT FOR TRANSPORT. T.O. FROM DR. BARRIOS, GIVE FLEET ENEMA X2 NOW PRIOR TO PROCEDURE. WILL GIVE PER ORDER.
--- NOTE | 2016-05-22 11:40 | NUR ---
NURSING NOTE: PATIENT GIVEN FLEET ENEMAS X2, PATIENT LEFT FLOOR VIA STRETCHER WITH DISTRIBUTION TO GI SUIT FOR COLONOSCOPY. IV IN PLACE #20 TO RH WITH D5 1/2 NS RUNNING AT 50ML/HR. GLASSES, HEARING AIDS, DENTURED REMOVED. PATIENT A/OX3. WILL AWAIT RETURN
--- NOTE | 2016-05-22 12:53 | Proc Note Colonoscopy ---
Colonoscopy Procedure Medical History: unchanged (see [facility] consult) Mental Status: alert/oriented Heart/Lung Eval Prior to Sedation: within normal limits Candidate for Sedation? Yes Date of Last Colonoscopy: 09/26/2006 Procedure Date: 05/22/16 Procedure Type: colonoscopy Surveillance Sensor Operator: Dada Tolentino MD ASA Classification: III Indications: Rectal bleeding. Instrument (Colonoscope): single channel Meds Received: MAC Patient's Tolerance: good Complications: none Extent Reached: cecum Prep: good Procedure: After getting written informed consent the patient was placed in the left lateral decubitus position with pulse oximetry, cardiac monitoring, and supplemental oxygen was given. IV sedation was given until the desired effect was achieved. A rectal exam was performed which was normal. A high definition variable stiffness Olympus colonoscope was then inserted into the anus and advanced to the cecum with little difficulty. Retroflexed views were obtained and photodocumentation was obtained. Close inspection of the colonic mucosa was performed on insertion and withdrawal of the colonoscope with a withdrawal time that was adequate in length to closely inspect all folds and mccarthy of the colon. Findings: There were several scattered diverticula appreciated in the sigmoid colon and a few diverticula in the descending and transverse colon. None of the visualized diverticula had any stigmata of recent hemorrhage. The remainder of the visualized colonic mucosa was grossly unremarkable. There were no polyps or masses appreciated. Retroflexed views in the rectum revealed small internal hemorrhoids. There was no blood appreciated anywhere in the colon. Impression: 1. Diverticulosis. 2. Small internal hemorrhoids. 3. No active bleeding appreciated. Recommendations: 1. He should be advanced a high-fiber diet as tolerated. 2. There are no absolute GI contraindications for him resuming his anticoagulation if medically indicated. 3. If there are no other active issues consideration should be given to discharge the patient home later today. 4. He should follow up with his primary care physician and biology laboratory assistant as an outpatient for routine healthcare maintenance. CC: NIYAH HENLEY,TROY Patel; ROSALVA HENLEY,YENNIFER
--- NOTE | 2016-05-22 13:30 | NUR ---
NURSING NOTE: PATIENT ARRIVED BACK TO THE FLOOR VIA STRETCHER WITH DISTRIBUTION FROM GI SUIT. A/OX3, DENIES PAIN. HUNGRY AND READY TO EAT. WILL GET NEW DIET ORDER AND CONTINUE TO MONITOR.
[2016-05-22] MEDS ORDERED: OMEPRAZOLE20 M2 PO ×2 (13:39→13:40)
--- NOTE | 2016-05-22 13:43 | Patient Discharge Instructions ---
Discharge Instructions General Discharge Information You were seen/treated for: Bloody stool Hemorrhoid Gastritis You had these procedures: Endoscopy Colonoscopy Watch for these problems: Persistent/profuse bleeding with bowel movements Fatigue, lightheadedness/dizziness, paleness Special Instructions: Please follow up with Dr. Tolentino (school age lead teacher) and Dr. Tovar (primary care) within a week of discaharge. Diet Continue normal diet: Yes Recommended Diet: Low fiber diet Activity Full Activity/No Limits: Yes Acute Coronary Syndrome Inclusion Criteria At DC or during hospital stay patient has or had the following: ACS DIAGNOSIS No Discharge Core Measures Meds if any: Prescribed or Continued at Discharge Meds if any: NOT Prescribed or Continued at Discharge Congestive Heart Failure Inclusion Criteria At DC or during hospital stay patient has or had the following: CHF DIAGNOSIS No Discharge Core Measures Meds if any: Prescribed or Continued at Discharge Meds if any: NOT Prescribed or Continued at Discharge Cerebrovascular accident Inclusion Criteria At DC or during hospital stay patient has or had the following: CVA/TIA Diagnosis No Discharge Core Measures Meds if any: Prescribed or Continued at Discharge Meds if any: NOT Prescribed or Continued at Discharge Venous thromboembolism Inclusion Criteria VTE Diagnosis No VTE Type NONE VTE Confirmed by (Test) NONE Discharge Core Measures - Per Current guidelines, there needs to be overlap - treatment for the first 5 days of Warfarin therapy. - If discharged on Warfarin prior to 5 days of - overlap therapy, the patient will need to be - assessed for post discharge needs including - *Post discharge parental anticoagulation - *Warfarin and/or parental anticoagulation education - *Follow up date to check INR post discharge At least 5 days overlap therapy as Inpatient No Meds if any: Prescribed or Continued at Discharge Note: Overlap Therapy is Warfarin and Anticoagulant Meds if any: NOT Prescribed or Continued at Discharge
--- NOTE | 2016-05-22 14:00 | Discharge Summary ---
Visit Information Visit Dates Admission Date: 05/21/16 Discharge Date: 05/22/16 Hospital Course Course Attending Physician: FACUNDO HENLEY,FARHEEN Callejas Primary Care Physician: TROY TOVAR MD Hospital Course: Patient is 89 year old male with PMH significant for atrial fibrillation on Pradexa, hemorrids, emphysema, HTN, ardiac arrest with ACID placement in 2009, hypothyroidism, hyperlipidemia and BPH who presented after an episode of dark stools per rectum and fresh blood most likely 2/2 hemorrhoid with erosive gastritis. He was admitted for further work up while ensuring hemodyanmic stability. # GI bleed Bright red blood per rectum was most likely due to hemorrhoids which the patient had had [employer]. The maroon brown color of his stool was possibly due to gastritis found on EGD. No signs of active bleeding were noted during the admission. Patient's hemoglobin on admission was slightly low at 11.3 but has been stable throughout the hospitalization. EGD was done on 05/21/16 and showed a short segment Anderson's esophagus without focal lesions, 3-4 cm sliding hiatal hernia, and erosive gastritis. No active bleeding or source of bleeding appreciated. Colonoscopy (05/22) was done subsequently the next day and showed diverticulosis and small internal hemorrhoids without any active bleeding appreciated. Patient was resumed on aspirin and Pradexa as per GI recommendation. In addition patient was started on Prilosec 20mg PO daily. He was discharged with an instruction to follow up with Dr. Tolentino outpatient. # Afib * Continued digoxin at home dosage and metoprolol 150mg PO BID. * Initially held Pradexa and then resumed once active signs of bleeding were ruled out on the procedures. # HTN * Continued home meds metoprolol and Lasix Allergies: Coded Allergies: strawberry (Mild, HOT STREAK UP HIS BACK PER PT 02/10/16) Penicillins (CONVULSIONS, ANAPHYLAXIS 02/10/16) shrimp (GI UPSET FAR HE REMEMBERS PER PT 02/10/16) Disposition Summary Disposition Principal Diagnosis: Gastritis Additional Diagnosis: Hemorrhoid Discharge Disposition: home or self care Discharge Instructions General Discharge Information Code Status: Full Code Patient's Diet: Low fiber Patient's Activity: Full Follow-Up Instructions/Appts: Please follow up with Dr. Tolentino (performing arts technicians) and Dr. Tovar (primary care) within a week of discaharge. Medications at Discharge Discharge Medications: Continue taking these medications: Aspirin (Ecotrin) 81 MG TABLET. 1 Tablet ORAL DAILY Cholecalciferol (Vitamin D3) 1,000 IU TAB 1 Tablet ORAL DAILY Levothyroxine Sodium (Levothyroxine) 0.088 MG TAB 1 Tablet ORAL DAILY BEFORE BREAKFAST Metoprolol Tartrate (Lopressor) 100 MG TABLET 1.5 Tablet ORAL TWICE DAILY Days = 30 Comments: Last Taken: 02/11/16 Time: 9:55 AM Tamsulosin HCl (Flomax) 0.4 MG CAP.ER.24H 1 Capsule ORAL Every night Furosemide (Lasix) 20 MG TABLET 1 Tablet ORAL DAILY DABIGATRAN ETEXILATE MESYLATE (Pradaxa) 150 MG CAPSULE 1 Capsule ORAL TWICE DAILY Albuterol Sulfate (Proair Hfa) 0.09 MG/Actuation SONJA 2 PUFF Inhale through mouth as needed for EMPHYSEMA OMEGA-3/DHA/EPA/FISH OIL ([place]on-3 Fish Oil 1,000 MG Sftg) (Unknown Strength) CAPSULE Unknown Dose ORAL DAILY Multivitamin (Multiple Vitamins) 1 EACH TABLET 1 Tablet ORAL DAILY Metoprolol Tartrate (Metoprolol Tartrate) 100 MG TABLET 1.5 Tablet ORAL TWICE DAILY Days = 30 Comments: Last Taken: 05/22/16 Time: 10AM Digoxin (Digoxin) 125 MCG TABLET 0.5 Tablet ORAL DAILY Comments: Last Taken: 05/22/16 Time: 10AM Start taking the following new medications: Omeprazole (Omeprazole) 20 MG CAPSULE. 20 Milligram ORAL DAILY BEFORE BREAKFAST Days = 14 No Refills Comments: NOT GIVEN IN HOSPITAL Copies To: NIYAH HENLEY,TROY Patel; RODOLFO TOLENTINO MD Attending MD Review Statement Documenting Attending: FACUNDO HENLEY,FARHEEN Callejas Other Findings: Patient seen and examined at bedside. EGD results reviewed and discussed with the patient. EGD shows erosive gastritis and some Anderson's esophagus. Colonoscopy shows some hemorrhoids. Discussed with patient the importance of cutting down on caffeine beverages intake. GI is okay with starting back Pradaxa and aspirin on the patient. Patient will be discharged to home today. Discussed with patient the care plan. Agree with the residents documentation.
--- NOTE | 2016-05-22 16:10 | NUR ---
NURSING NOTE: PATIENT A/OX3, DENIES PAIN AT THIS TIME. IV DISCONTINUED. PAPERWORK WITH PATIENT INCLUDING PRESCRIPTIONS. W/C CALLED FOR DISCHARGE.
[2016-10-15] MEDS ORDERED: VIBRAMYCIN100 MG PO (16:35)
[2016-10-19] MEDS ORDERED: OMEGA 3-6-9 11200 MG PO (10:36)
[2016-10-19] MEDS ORDERED: KEFLEX500 M1 PO (10:57)
== END 2016-05-22 16:05 | disposition home health service (06) | DRG 395 ==
LOC: ENRESERVTM → ENRESERVDT → CANRESERV → ERH 09:39 → ERHI 12:00 → 2NB 12:00 → ENPENDDIS 12:00 → 2NB 14:56
PROVIDERS: Physician Assistant; ADMIT Internal Medicine
PROC: 0DJ08ZZ Inspection of Upper Intestinal Tract, Via Natural or Artificial Opening Endoscopic (ICD-10-PCS; principal; 2016-05-21)
PROC: 0DJD8ZZ Inspection of Lower Intestinal Tract, Via Natural or Artificial Opening Endoscopic (ICD-10-PCS; 2016-05-22)
DX: K64.8 Other hemorrhoids (principal); I48.0 Paroxysmal atrial fibrillation; J44.9 Chronic obstructive pulmonary disease, unspecified; I10 Essential (primary) hypertension; E03.9 Hypothyroidism, unspecified; N40.0 Benign prostatic hyperplasia without lower urinary tract symptoms; K22.70 Barrett's esophagus without dysplasia; K44.9 Diaphragmatic hernia without obstruction or gangrene; K57.30 Diverticulosis of large intestine without perforation or abscess without bleeding; K64.4 Residual hemorrhoidal skin tags; E78.5 Hyperlipidemia, unspecified
CPT/HCPCS: 2NBSP; 81001; 93005; 93010; J2405; J3490; J7042